=== PATIENT | male | born 1980 | race Caucasian/White ===

== ENCOUNTER 2018-03-11 11:44 | Outpatient (CLI) | payer BC | END 2018-03-11 11:45 | disposition home or self-care (01) | LOC: BICRAD 11:44 | PROVIDERS: ATTEND Family Medicine | DX: M79.671 Pain in right foot (principal) ==

== ENCOUNTER 2020-08-01 11:11 | Emergency (ER) | payer BC ==
[2020-08-01] MEDS ORDERED: Bicillin LA 2.4 MILL.UNITS/4 ML SYRINGE ONE (12:26)
== END 2020-08-01 14:29 | disposition home or self-care (01) ==
LOC: ERS 11:11
DX: J02.0 Streptococcal pharyngitis (principal)
CPT/HCPCS: 96372; 99282; J0561